=== PATIENT | female | born 1945 | race Caucasian/White ===

== ENCOUNTER 2017-11-06 08:55 | Outpatient (CLI) | payer MEDICARE, BC ==
--- NOTE | 2017-11-06 15:55 | MRI ---
MRI OF THE LEFT WRIST 11/06/17 PROVIDED CLINICAL HISTORY: Left wrist pain. FINDINGS: No comparison. There is a markedly attenuated appearance to the flexor carpi radius tendon at the level of the radio carpal joint. There is a small portion of tendon which appears to extend from this level to the base of the second metacarpal insertion through the insertion appears somewhat enlarged and hyperintense a s well. The findings are compatible with at least high grade partial thickness if not functionally fu ll thickness tear. The dorsal extensor and volar flexor tendons demonstrate an otherwise unremarkable MR appearance. Evaluation of the TFC complex and intrinsic wrist ligaments is limited on the basis of patient motion on the coronal sequence. There is evidence for subcortical cyst-like change involving the radiocarpa l articular aspects of the proximal lunate, which indicate occult underlying radiocarpal articular ca rtilage loss. The amount of fluid within the radiocarpal joint appears physiologic. Subcortical cyst-like changes are seen within the carpus, nonspecific. There is marrow edema present at the radial aspects of the distal pole of the scaphoid and radial aspects of the scaphoid waist. There is prominent noncircumscribed fluid signal intensity about the disrupted flexor carpi radialis tendon at the level of the radiocarpal joint. This fluid signal intensity is inseparable from the rad ial neurovascular bundle in this location. The courses of the regional major neurovascular structures appear otherwise unremarkable. IMPRESSION: 1. At least high grade partial thickness if not functionally full thickness disruption of the fl exor carpi radialis tendon at the level of the radiocarpal joint. Surrounding fluid signal intensity may be posttraumatic. Correlation with concerns for infection recommended. 2. Degenerative changes are seen involving the radiocarpal joint. 3. Nonspecific marrow edema within the radial aspects of the distal pole and waist of the scapho id. Correlate with concerns for infection. POS: [facility]
== END 2017-11-06 08:56 | disposition home or self-care (01) ==
LOC: SCSMRI 08:55
PROVIDERS: ATTEND Orthopaedic Surgery
DX: M25.532 Pain in left wrist (principal); M19.032 Primary osteoarthritis, left wrist

== ENCOUNTER 2017-12-02 09:03 | Outpatient (CLI) | payer MEDICARE, BC ==
[2017-12-02 10:50] LABS: #Eosinphils 0.4 thou/uL (0.0-0.7); #Lymphocytes 2.1 thou/uL (1.20-3.40); #Monocytes 0.6 thou/uL (0.11-0.59); #Neutrophils 7.3 thou/uL (1.40-6.50); %Basophils 0.4 % (0.0-1.0); %Eosinophils 3.4 % (0.0-10.0); %Monocytes 5.8 % (0.0-10.0); %Neutrophils 70.5 % (42.0-75.0); Mean Corpuscular HGB CONC 34.5 g/dL (32.0-36.0); Mean Corpuscular Hemoglobin 28.1 pg (27.0-31.0); Mean Corpuscular Volume 81.6 fL (78.0-98.0); Mean Platelet Volume 7.3 fL (7.4-10.4); Platelet Count 232 thou/uL (130-400); RBC Distribution Width 12.4 % (11.5-14.5); Red Blood Cell (RBC) Count 4.28 mill/uL (4.20-5.40); White Blood Cell (WBC) Count 10.3 thou/uL (4.8-10.8)
[2017-12-02 11:07] LABS: INR-International Normal Ratio 1.1
[2017-12-02 11:08] LABS: Anion Gap 12 mmol/L (10-20); BUN (Urea Nitrogen) 36 mg/dL (9.8-20.1); Calc. Creatinine Clearance 0 mL/min (70-130); Calcium 10.3 mg/dL (7.8-10.44); Carbon Dioxide 24 mmol/L (23-31); Chloride 105 mmol/L (98-107); Estimated GFR-MDRD 60; Glucose 107 mg/dL (80-115); Potassium 4.1 mmol/L (3.5-5.1); Sodium 137 mmol/L (136-145)
--- NOTE | 2017-12-02 12:21 | RAD ---
RADIOGRAPH CHEST 2 VIEWS: HISTORY: Preoperative clearance for a 71-year-old female. FINDINGS: There is no air space density, pulmonary edema, pleural effusion, pneumothorax, or cardiomegaly. IMPRESSION: No acute cardiopulmonary findings. jn [] POS: [facility]
--- NOTE | 2017-12-03 06:56 | EKG ---
Test Reason : Blood Pressure : / mmHG Vent. Rate : 061 BPM Atrial Rate : 061 BPM P-R Int : 146 ms QRS Dur : 070 ms QT Int : 406 ms P-R-T Axes : 030 068 014 degrees QTc Int : 408 ms Normal sinus rhythm Low voltage QRS Cannot rule out Anterior infarct , age undetermined Abnormal ECG When compared with ECG of 30-JAN-2012 08:23, Vent. rate has decreased BY 32 BPM Nonspecific T wave abnormality, improved in Inferior leads Confirmed by LLUVIA HERNANDEZ ([id number]) on 12/03/2017 6:56:24 AM Referred By: PETE Confirmed By:LLUVIA HERNANDEZ
== END 2017-12-02 09:04 | disposition home or self-care (01) ==
LOC: LABBT 09:03
PROVIDERS: ATTEND Orthopaedic Surgery Hand Surgery
DX: Z01.818 Encounter for other preprocedural examination (principal); M66.332 Spontaneous rupture of flexor tendons, left forearm
CPT/HCPCS: 71046; 80048; 85025; 85610; 93005; 93010

== ENCOUNTER 2019-03-17 10:32 | Outpatient (CLI) | payer MEDICARE, BC ==
--- NOTE | 2019-03-17 12:01 | MMO ---
Bilateral MAMMO Bilat Screen [facility]. CLINICAL HISTORY: Patient is 73 years old and is seen for screening. The patient has no family history of breast cancer. The patient has no personal history of cancer. The patient has a history of left Excisional Biopsy in - benign and right Excisional Biopsy in 07/2004 - benign. VIEWS: The views performed were: bilateral craniocaudal with tomosynthesis and bilateral mediolateral oblique with tomosynthesis. FILMS COMPARED: The present examination has been compared to prior imaging studies performed at [facility] on 03/19/2005, 08/29/2005, 02/08/2009 and 08/30/2014. This study has been interpreted with the assistance of computer-aided detection. MAMMOGRAM FINDINGS: There are scattered fibroglandular densities. There are no suspicious masses, suspicious calcifications, or new areas of architectural distortion. IMPRESSION: THERE IS NO MAMMOGRAPHIC EVIDENCE OF MALIGNANCY. A ROUTINE FOLLOW-UP MAMMOGRAM IN 1 YEAR IS RECOMMENDED. THE RESULTS OF THIS EXAM WERE SENT TO THE PATIENT. ACR BI-RADS Category 1 - Negative MAMMOGRAPHY NOTE: 1. A negative mammogram report should not delay a biopsy if a dominant of clinically suspicious mass is present. 2. Approximately 10% to 15% of breast cancers are not detected by mammography. 3. Adenosis and dense breasts may obscure an underlying neoplasm. Reported by: KAYA HE MD Electonically Signed: [id number]
== END 2019-03-17 10:33 | disposition home or self-care (01) ==
LOC: BICMAMMO 10:32
PROVIDERS: ATTEND Family Medicine
DX: Z12.31 Encounter for screening mammogram for malignant neoplasm of breast (principal); Z91.89 Other specified personal risk factors, not elsewhere classified
CPT/HCPCS: 77063; 77067

== ENCOUNTER 2020-07-06 08:45 | Outpatient (CLI) | payer MEDICARE, BC | END 2020-07-06 08:46 | disposition home or self-care (01) | LOC: BICMAMMO 08:45 | PROVIDERS: ATTEND Family Medicine | DX: Z12.31 Encounter for screening mammogram for malignant neoplasm of breast (principal); Z13.820 Encounter for screening for osteoporosis; Z78.0 Asymptomatic menopausal state | CPT/HCPCS: 77063; 77067; 77080 ==

== ENCOUNTER 2020-11-09 14:57 | Outpatient (CLI) | payer MEDICARE, BC | END 2020-11-09 14:58 | disposition home or self-care (01) | LOC: CTENTCT 14:57 | PROVIDERS: ATTEND Specialist | DX: J32.9 Chronic sinusitis, unspecified (principal) | CPT/HCPCS: 70486 ==

== ENCOUNTER 2021-02-16 09:45 | Inpatient (IN) | payer MEDICARE, BC ==
[2021-02-20 10:18] VITALS: BMI 34.0
[2021-02-21] MEDS ORDERED: Clindamycin/D5W 600 mg/50 ml Premix Bag ONE (07:36)
[2021-02-21] MEDS ORDERED: Sodium Chloride 0.9% 100 ML ONE (07:36)
[2021-02-21] MEDS ORDERED: Tranexamic Acid 1,000 MG/10 ML VIAL ONE (07:36)
[2021-02-21] MEDS ORDERED: Levofloxacin 500 mg/D5W 100 ml Premix Bag ONE (07:36)
[2021-02-21] MEDS ORDERED: Vancomycin 1.5 GRAM/300 ML BAG 1.5 GM in Premix Bag 1 BAG IVPB SCH (07:45)
[2021-02-21] MEDS ORDERED: Midazolam HCl 2 mg/2 ml Vial ONE (07:48)
[2021-02-21] MEDS ORDERED: Fentanyl 100 MCG/2 ML VIAL ONE (07:49)
[2021-02-21] MEDS ORDERED: Fentanyl 100 MCG/2 ML VIAL SLOW IVP PRN (08:47)
[2021-02-21] MEDS ORDERED: Ondansetron PF 4 MG/2 ML Vial IVP PRN (09:00)
[2021-02-21] MEDS ORDERED: Zolpidem Tartrate 5 MG TAB PO PRN (09:00)
[2021-02-21] MEDS ORDERED: Promethazine HCl 25 MG/ML VIAL IM PRN ×2 (09:00→11:33)
[2021-02-21] MEDS ORDERED: traMADol HCl 50 MG TAB PO PRN ×2 (09:00)
[2021-02-21] MEDS ORDERED: Ketorolac Tromethamine 30 MG/ML VIAL IVP PRN (09:00)
[2021-02-21] MEDS ORDERED: HYDROcodone/Acetaminophen 10/325 mg Tablet PO PRN (09:00)
[2021-02-21] MEDS ORDERED: Gabapentin 300 MG CAP PO SCH (09:00)
[2021-02-21] MEDS ORDERED: Ropivacaine 0.2% 550 ML 550 ML NERVE BLCK SCH (09:00)
[2021-02-21] MEDS ORDERED: Bupivacaine 0.25% HCL 30 ML VIAL ONE (09:07)
[2021-02-21] MEDS ORDERED: EPINEPHrine 1 MG/ML AMP ONE (09:07)
[2021-02-21] MEDS ORDERED: diphenhydrAMINE 25 MG CAP PO PRN (09:12)
[2021-02-21] MEDS ORDERED: Acetaminophen 325 MG TAB PO PRN (09:12)
[2021-02-21] MEDS ORDERED: Ketorolac Tromethamine 30 MG/ML VIAL ONE ×2 (09:27→09:31)
[2021-02-21] MEDS ORDERED: PROPOFOL 20 ML ONE (09:27)
[2021-02-21] MEDS ORDERED: Ondansetron PF 4 MG/2 ML Vial ONE ×2 (09:27→09:31)
[2021-02-21] MEDS ORDERED: Bupivacaine HCl 0.5%/Epinephrine 1:200,000/PF 30 ml Vial ONE (09:31)
[2021-02-21] MEDS ORDERED: Lidocaine 1% PF 5 ML VIAL ONE (09:31)
[2021-02-21] MEDS ORDERED: Ropivacaine 2% HCl/PF (20 MG/10 ML VIAL) ONE (09:31)
[2021-02-21] MEDS ORDERED: PROPOFOL 200 MG/20 ML VIAL ONE (09:31)
[2021-02-21] MEDS ORDERED: ePHEDrine 50 MG/ML VIAL ONE (09:31)
[2021-02-21] MEDS ORDERED: ePHEDrine Sulfate 50 MG/10 ML VIAL ONE (09:38)
[2021-02-21] MEDS ORDERED: Phenylephrine 10 MG/ML VIAL ONE (10:09)
[2021-02-21] MEDS ORDERED: Ondansetron HCl/PF 4 MG/2 ML Vial IVP PRN (11:33)
[2021-02-21] MEDS ORDERED: Promethazine HCl 25 MG/ML VIAL IVPB PRN (11:33)
[2021-02-21] MEDS ORDERED: Dextrose 50% Abboject 50 ML SYRINGE SLOW IVP PRN (13:32)
[2021-02-21] MEDS ORDERED: Insulin Regular 300 UNITS/3 ML VIAL SC PRN ×2 (13:32)
[2021-02-21] MEDS ORDERED: Dextrose 5% in Water 1,000 ML IV PRN (13:32)
[2021-02-21] MEDS ORDERED: hydrALAZINE 20 MG/ML VIAL SLOW IVP PRN (13:35)
[2021-02-21] MEDS ORDERED: Polyethylene Glycol 3350 17 GM Packet PO PRN (13:36)
[2021-02-21] MEDS: Clindamycin/D5W 900 MG in Premix Bag 1 BAG IVPB SCH ×2 (16:42→21:28)
[2021-02-21] MEDS: Gabapentin 300 MG CAP PO SCH ×2 (16:42→21:28)
[2021-02-21] MEDS ORDERED: Vancomycin HCl 1.5 GM in Sodium Chloride 0.9% 250 ML 300 ML IVPB SCH (20:00)
[2021-02-21] MEDS ORDERED: Hydrochlorothiazide 25 MG TAB PO SCH (21:00)
[2021-02-21] MEDS ORDERED: Valsartan 80 MG TAB PO SCH (21:00)
[2021-02-21] MEDS ORDERED: LOVASTATIN 20 MG PO SCH (21:00)
[2021-02-21] MEDS: Aspirin 81 mg Enteric Coated Tablet PO SCH (21:28)
[2021-02-21] MEDS: Montelukast Sodium 10 mg Tablet PO SCH (21:33)
[2021-02-21] MEDS: Simvastatin 5 MG TAB PO SCH (21:33)
[2021-02-21] MEDS: Methenamine Hippurate 1 GM TAB PO SCH (22:45)
[2021-02-22] MEDS: HYDROcodone/Acetaminophen 10/325 mg Tablet PO PRN ×3 (03:55→16:51)
[2021-02-22 05:49] LABS: #Eosinphils 0.3 thou/uL (0.0-0.7); #Lymphocytes 1.4 thou/uL (1.20-3.40); #Monocytes 0.7 thou/uL (0.11-0.59); #Neutrophils 7.5 thou/uL (1.40-6.50); %Basophils 0.4 % (0.0-1.0); %Lymphocytes 14.1 % (21.0-51.0); %Monocytes 7.4 % (0.0-10.0); %Neutrophils 75.2 % (42.0-75.0); Hemoglobin 10.3 g/dL (12.0-16.0); Mean Corpuscular HGB CONC 33.8 g/dL (32.0-36.0); Mean Corpuscular Hemoglobin 27.9 pg (27.0-31.0); Mean Corpuscular Volume 82.6 fL (78.0-98.0); Mean Platelet Volume 7.5 fL (7.4-10.4); Platelet Count 189 thou/uL (130-400); RBC Distribution Width 13.5 % (11.5-14.5)
[2021-02-22] MEDS ORDERED: Levothyroxine Sodium 75 MCG TAB PO SCH (06:00)
[2021-02-22] MEDS: Levothyroxine Sodium 75 MCG TAB PO SCH (06:09)
[2021-02-22 06:11] LABS: Anion Gap 12 mmol/L (10-20); BUN (Urea Nitrogen) 29 mg/dL (9.8-20.1); Calc. Creatinine Clearance 61 mL/min (70-130); Carbon Dioxide 26 mmol/L (23-31); Chloride 104 mmol/L (98-107); Glucose 113 mg/dL (83-110); Potassium 4.5 mmol/L (3.5-5.1); Sodium 137 mmol/L (136-145)
[2021-02-22] MEDS: Mometasone 100 MCG/Formoterol 5 MCG 120 PUFF INHALER INH SCH ×2 (06:42→18:54)
[2021-02-22] MEDS: Ipratropium Bromide 2.5 ml Neb NEB SCH ×3 (06:43→18:53)
[2021-02-22] MEDS: Aspirin 81 mg Enteric Coated Tablet PO SCH ×2 (07:57→21:01)
[2021-02-22] MEDS: Ferrous Gluconate 324 MG TAB PO SCH ×2 (07:57→16:50)
[2021-02-22] MEDS: Gabapentin 300 MG CAP PO SCH ×3 (07:58→21:01)
[2021-02-22] MEDS: Multivitamin W/ Minerals 1 TAB PO SCH (07:58)
[2021-02-22] MEDS: Amlodipine 5 MG TAB PO SCH ×2 (07:59→08:34)
[2021-02-22] MEDS: metFORMIN 500 MG TAB PO SCH (07:59)
[2021-02-22] MEDS: Senokot S 8.6-50 MG TAB PO SCH ×2 (08:02→21:01)
[2021-02-22] MEDS ORDERED: Amlodipine 5 MG TAB PO SCH (09:00)
[2021-02-22] MEDS ORDERED: metFORMIN 500 MG TAB PO SCH (09:00)
[2021-02-22] MEDS ORDERED: Valsartan 80 MG TAB PO SCH (09:00)
[2021-02-22] MEDS ORDERED: Nebivolol HCl 5 MG TAB PO SCH (09:00)
[2021-02-22] MEDS ORDERED: Hydrochlorothiazide 25 MG TAB PO SCH (09:00)
[2021-02-22] MEDS: Saccharomyces boulardii 250 MG CAP PO SCH (12:01)
[2021-02-22] MEDS: Citalopram 10 MG TAB PO SCH (13:47)
[2021-02-22] MEDS: Methenamine Hippurate 1 GM TAB PO SCH ×2 (16:47→21:03)
[2021-02-22] MEDS: Montelukast Sodium 10 mg Tablet PO SCH (21:01)
[2021-02-22] MEDS: Simvastatin 5 MG TAB PO SCH (21:01)
[2021-02-23] MEDS: Ipratropium Bromide 2.5 ml Neb NEB SCH ×4 (00:12→18:28)
[2021-02-23] MEDS: Levothyroxine Sodium 75 MCG TAB PO SCH (05:26)
[2021-02-23 05:52] LABS: #Basophils 0.1 thou/uL (0.0-0.2); #Eosinphils 0.4 thou/uL (0.0-0.7); #Lymphocytes 1.7 thou/uL (1.20-3.40); #Monocytes 0.9 thou/uL (0.11-0.59); #Neutrophils 7.3 thou/uL (1.40-6.50); %Basophils 0.5 % (0.0-1.0); %Eosinophils 4.1 % (0.0-10.0); %Lymphocytes 16.3 % (21.0-51.0); %Monocytes 8.6 % (0.0-10.0); %Neutrophils 70.5 % (42.0-75.0); Mean Corpuscular HGB CONC 32.7 g/dL (32.0-36.0); Mean Corpuscular Hemoglobin 27.6 pg (27.0-31.0); Mean Corpuscular Volume 84.6 fL (78.0-98.0); Mean Platelet Volume 7.4 fL (7.4-10.4); Platelet Count 187 thou/uL (130-400); RBC Distribution Width 13.5 % (11.5-14.5); Red Blood Cell (RBC) Count 3.63 mill/uL (4.20-5.40); White Blood Cell (WBC) Count 10.3 thou/uL (4.8-10.8)
[2021-02-23 06:14] LABS: Anion Gap 11 mmol/L (10-20); BUN (Urea Nitrogen) 38 mg/dL (9.8-20.1); Calc. Creatinine Clearance 41 mL/min (70-130); Calcium 9.2 mg/dL (7.8-10.44); Carbon Dioxide 27 mmol/L (23-31); Chloride 103 mmol/L (98-107); Glucose 111 mg/dL (83-110); Potassium 4.3 mmol/L (3.5-5.1); Sodium 137 mmol/L (136-145)
[2021-02-23] MEDS: Mometasone 100 MCG/Formoterol 5 MCG 120 PUFF INHALER INH SCH ×2 (06:42→18:28)
[2021-02-23] MEDS ORDERED: Communication Order-Pharmacy FS SCH (06:45)
[2021-02-23] MEDS ORDERED: Naloxone HCl 0.4 mg/ml Vial IV PRN (06:45)
[2021-02-23] MEDS ORDERED: Ondansetron PF 4 MG/2 ML Vial IVP PRN (06:45)
[2021-02-23] MEDS ORDERED: Zolpidem Tartrate 5 MG TAB PO PRN (06:45)
[2021-02-23] MEDS ORDERED: Promethazine HCl 25 MG/ML VIAL IM PRN (06:45)
[2021-02-23] MEDS ORDERED: diphenhydrAMINE 50 MG/ML VIAL IM PRN (06:45)
[2021-02-23] MEDS ORDERED: diphenhydrAMINE 50 MG/ML VIAL IVP PRN (06:45)
[2021-02-23] MEDS ORDERED: diphenhydrAMINE 25 MG CAP PO PRN (06:45)
[2021-02-23] MEDS ORDERED: fentaNYL Citrate/PF 2,000 MCG in Sodium Chloride 0.9% 60 ML IV PRN (06:45)
[2021-02-23] MEDS ORDERED: Dextrose 5 % And 0.9 % NaCl 1,000 ML IV SCH (07:45)
[2021-02-23] MEDS ORDERED: traMADol HCl 50 MG TAB PO PRN ×2 (10:08)
[2021-02-23] MEDS: Ferrous Gluconate 324 MG TAB PO SCH ×2 (10:09→15:04)
[2021-02-23] MEDS: metFORMIN 500 MG TAB PO SCH (10:09)
[2021-02-23] MEDS: Aspirin 81 mg Enteric Coated Tablet PO SCH ×2 (10:09→20:54)
[2021-02-23] MEDS: Senokot S 8.6-50 MG TAB PO SCH ×2 (10:10→20:54)
[2021-02-23] MEDS: Citalopram 10 MG TAB PO SCH (10:10)
[2021-02-23] MEDS: Multivitamin W/ Minerals 1 TAB PO SCH (10:10)
[2021-02-23] MEDS: Saccharomyces boulardii 250 MG CAP PO SCH (10:11)
[2021-02-23] MEDS: Methenamine Hippurate 1 GM TAB PO SCH ×2 (10:11→20:54)
[2021-02-23] MEDS: Gabapentin 300 MG CAP PO SCH ×3 (10:11→20:54)
[2021-02-23] MEDS: HYDROcodone/Acetaminophen 10/325 mg Tablet PO PRN ×2 (10:29→15:09)
[2021-02-23] MEDS: Simvastatin 5 MG TAB PO SCH (20:54)
[2021-02-23] MEDS: Montelukast Sodium 10 mg Tablet PO SCH (20:54)
[2021-02-24] MEDS: Ipratropium Bromide 2.5 ml Neb NEB SCH ×3 (00:27→13:27)
[2021-02-24] MEDS: Levothyroxine Sodium 75 MCG TAB PO SCH (05:28)
[2021-02-24 05:39] LABS: Hemoglobin 9.1 g/dL (12.0-16.0); Mean Corpuscular HGB CONC 33.8 g/dL (32.0-36.0); Mean Corpuscular Hemoglobin 28.1 pg (27.0-31.0); Mean Corpuscular Volume 83.2 fL (78.0-98.0); Mean Platelet Volume 7.8 fL (7.4-10.4); Platelet Count 173 thou/uL (130-400); RBC Distribution Width 13.3 % (11.5-14.5); Red Blood Cell (RBC) Count 3.24 mill/uL (4.20-5.40); White Blood Cell (WBC) Count 9.7 thou/uL (4.8-10.8)
[2021-02-24 06:03] LABS: Anion Gap 10 mmol/L (10-20); BUN (Urea Nitrogen) 37 mg/dL (9.8-20.1); Calc. Creatinine Clearance 42 mL/min (70-130); Carbon Dioxide 24 mmol/L (23-31); Chloride 103 mmol/L (98-107); Potassium 4.1 mmol/L (3.5-5.1); Sodium 133 mmol/L (136-145)
[2021-02-24 06:04] LABS: ALT (SGPT) 10 U/L (8-55); AST (SGOT) 10 U/L (5-34); Alkaline Phosphatase 68 U/L (40-110); Bilirubin, Total 0.3 mg/dL (0.2-1.2); Calcium 8.7 mg/dL (7.8-10.44); Globulin 2.6 g/dL (2.4-3.5); Glucose 124 mg/dL (83-110); Protein, Total 5.6 g/dL (5.8-8.1)
[2021-02-24] MEDS: Mometasone 100 MCG/Formoterol 5 MCG 120 PUFF INHALER INH SCH (07:40)
[2021-02-24] MEDS ORDERED: Sodium Chloride 0.9% 500 ML IV SCH (08:00)
[2021-02-24] MEDS: Citalopram 10 MG TAB PO SCH (09:13)
[2021-02-24] MEDS: Multivitamin W/ Minerals 1 TAB PO SCH (09:13)
[2021-02-24] MEDS: Senokot S 8.6-50 MG TAB PO SCH (09:13)
[2021-02-24] MEDS: Aspirin 81 mg Enteric Coated Tablet PO SCH (09:14)
[2021-02-24] MEDS: Gabapentin 300 MG CAP PO SCH (09:14)
[2021-02-24] MEDS: Saccharomyces boulardii 250 MG CAP PO SCH (09:14)
[2021-02-24] MEDS: Methenamine Hippurate 1 GM TAB PO SCH (09:14)
[2021-02-24] MEDS: Ferrous Gluconate 324 MG TAB PO SCH (09:15)
[2021-02-24] MEDS: metFORMIN 500 MG TAB PO SCH (09:15)
[2021-02-24] MEDS: HYDROcodone/Acetaminophen 10/325 mg Tablet PO PRN (09:15)
[2021-02-24 09:56] LABS: Bacteria/HPF None Seen HPF (None Seen); Bilirubin Negative (Negative); Blood, Urine Negative (Negative); Clarity Clear (Clear); Glucose, Urine (Dipstick) Normal (Negative); Ketone, Urine Negative (Negative); Leukocyte Negative Leu/uL (Negative); Nitrite Negative (Negative); Protein, Urine (Dipstick) 10 mg/dL (Neg-Trace); RBC/HPF None Seen HPF (0-3); Specific Gravity, Urine 1.018 (1.002-1.036); Squamous Epithelial 0-3 HPF (0-3); Urobilinogen Normal mg/dL (Less than 2); WBC/HPF 0-3 HPF (0-3); pH, Urine 5.5 (5.0-9.0)
[2021-02-24 10:14] LABS: Creatinine, Urine 115.43 mg/dL (47-110)
[2021-02-24 12:27] VITALS: BP 123/72; TEMP 97.9
== END 2021-02-24 17:12 | disposition home health service (06) | DRG 470 ==
LOC: SURG A 02-21 06:32 → SURG B 02-21 12:59
PROVIDERS: ADMIT Orthopaedic Surgery; ATTEND Orthopaedic Surgery
PROC: 0SRC0J9 Replacement of Right Knee Joint with Synthetic Substitute, Cemented, Open Approach (ICD-10-PCS; principal; 2021-02-21)
DX: M17.11 Unilateral primary osteoarthritis, right knee (principal); N17.9 Acute kidney failure, unspecified; E87.1 Hypo-osmolality and hyponatremia; Z20.822 Contact with and (suspected) exposure to COVID-19; E78.5 Hyperlipidemia, unspecified; J44.9 Chronic obstructive pulmonary disease, unspecified; G62.9 Polyneuropathy, unspecified; J30.2 Other seasonal allergic rhinitis; N18.2 Chronic kidney disease, stage 2 (mild); I12.9 Hypertensive chronic kidney disease with stage 1 through stage 4 chronic kidney disease, or unspecified chronic kidney disease; E03.9 Hypothyroidism, unspecified; E11.69 Type 2 diabetes mellitus with other specified complication; E11.22 Type 2 diabetes mellitus with diabetic chronic kidney disease; J45.20 Mild intermittent asthma, uncomplicated; I95.9 Hypotension, unspecified; Z88.0 Allergy status to penicillin; Z88.5 Allergy status to narcotic agent; Z88.8 Allergy status to other drugs, medicaments and biological substances; Z91.040 Latex allergy status; Z79.890 Hormone replacement therapy; Z79.84 Long term (current) use of oral hypoglycemic drugs; Z79.899 Other long term (current) drug therapy; Z79.51 Long term (current) use of inhaled steroids; Z91.048 Other nonmedicinal substance allergy status; Z68.34 Body mass index [BMI] 34.0-34.9, adult
CPT/HCPCS: 36415; 36416; 71045; 80048; 80053; 81001; 82550; 82570; 84156; 84300; 84540; 85025; 85027; 94640; A4306; C1713; C1776; J0171; J1885; J1956; J2250; J2370; J2405; J2550; J2704; J2795; J3010; J3490; J7030; J7042; S0020

== ENCOUNTER 2021-02-16 09:57 | Outpatient (CLI) | payer MEDICARE, BC ==
[2021-02-16 11:15] LABS: #Basophils 0.1 10x3/uL (0.0-0.2); #Eosinphils 0.4 10x3/uL (0.0-0.5); #Monocytes 0.7 10x3/uL (0.0-1.1); #Neutrophils 5.1 10x3/uL (1.5-8.4); %Basophils 0.9 % (0.0-2.0); %Eosinophils 5.4 % (0.0-6.0); %Lymphocytes 20.3 % (18.0-47.0); %Monocytes 9.2 % (0.0-10.0); %Neutrophils 63.7 % (40.0-75.0); Hemoglobin 12.2 g/dL (12.0-15.5); Mean Corpuscular HGB CONC 33.1 g/dL (32.0-36.0); Mean Corpuscular Hemoglobin 26.8 pg (27.0-33.0); Mean Corpuscular Volume 81.1 fl (81.6-98.3); Mean Platelet Volume 9.7 fl (7.4-10.4); Platelet Count 240 10x3/uL (150-450); RBC Distribution Width 14.5 % (11.5-14.5); Red Blood Cell (RBC) Count 4.55 10x6/uL (3.90-5.03)
[2021-02-16 11:43] LABS: INR-International Normal Ratio 0.9; Prothrombin Time 10.3 sec (9.5-12.1)
[2021-02-16 11:45] LABS: Anion Gap 16 mmol/L (10-20); BUN (Urea Nitrogen) 28 mg/dL (9.8-20.1); Calc. Creatinine Clearance 0 mL/min (70-130); Carbon Dioxide 25 mmol/L (23-31); Chloride 102 mmol/L (98-107); Glucose 109 mg/dL (83-110); Potassium 4.7 mmol/L (3.5-5.1); Sodium 138 mmol/L (136-145)
[2021-02-16 17:35] LABS: SARS-CoV-2 PCR by NAA Not Detected (NotDetected)
== END 2021-02-16 09:58 | disposition home or self-care (01) ==
LOC: LABBT 09:57
PROVIDERS: ATTEND Orthopaedic Surgery
DX: Z01.818 Encounter for other preprocedural examination (principal); M17.31 Unilateral post-traumatic osteoarthritis, right knee; Z20.822 Contact with and (suspected) exposure to COVID-19
CPT/HCPCS: 80048; 85025; 85610; 87081; 93005; U0003; U0005; 93010

== ENCOUNTER 2021-02-28 13:03 | Outpatient (CLI) | payer MEDICARE, BC ==
[~2021-02-28 13:03] MED LIST: Iopamidol 370 76% 100 ML VIAL ONE
== END 2021-02-28 13:04 | disposition home or self-care (01) ==
LOC: CT 13:03
PROVIDERS: ATTEND Internal Medicine Critical Care Medicine
DX: R06.00 Dyspnea, unspecified (principal); J90 Pleural effusion, not elsewhere classified
CPT/HCPCS: 71275; 82565; Q9967